=== PATIENT | male | born 1985 ===

== ENCOUNTER 2021-03-28 15:11 | Emergency (ER) | payer MEDICAID ==
[~2021-03-28] VITALS: Ht 182.9 cm; Wt 93.0 kg
[2021-03-28] MEDS ORDERED: KETOROLAC TROMETH 60MG/2ML VIAL IM ONE (15:30)
[2021-03-28] MEDS ORDERED: CLINDAMYCIN 600 MG/4 ML VL IM ONE (15:30)
[2021-03-28] MEDS ORDERED: cefTRIAXone W LIDOCAINE 1 GM IM IM ONE (15:30)
[2021-03-28 21:05] VITALS: BP 137/90
== END 2021-03-28 21:08 | disposition home or self-care (01) ==
LOC: ER 15:11
DX: L03.116 Cellulitis of left lower limb (principal); Z88.0 Allergy status to penicillin
CPT/HCPCS: 73700; 96372; 99284; J0696; J1885